=== PATIENT | male | born 1985 | race Caucasian/White ===

== ENCOUNTER 2021-12-19 04:12 | Emergency (ER) | payer OTHER ==
[~2021-12-19] VITALS: Ht 190.5 cm; Wt 124.5 kg
[2021-12-19] MEDS ORDERED: AMLOATOR (05:22)
[2021-12-19] MEDS ORDERED: FENO48 (05:23)
[2021-12-19] MEDS ORDERED: Robaxin750 MG PO (06:33)
== END 2021-12-19 06:41 | disposition home or self-care (01) ==
LOC: ER 04:12
DX: M54.9 Dorsalgia, unspecified (principal); M54.2 Cervicalgia; V89.2XXA Person injured in unspecified motor-vehicle accident, traffic, initial encounter; Z88.0 Allergy status to penicillin
CPT/HCPCS: A9270; J1885